=== PATIENT | male | born 1975 | race Caucasian/White ===

== ENCOUNTER 2017-02-08 16:59 | Emergency (ER) | payer BC ==
[2017-02-08] MEDS ORDERED: Sodium Chloride 0.9% 10 ML Syringe FLUSH PRN (17:33)
[2017-02-08] MEDS ORDERED: Famotidine 20 MG/2 ML SDV IVPUSH ONE (17:33)
[2017-02-08] MEDS ORDERED: Sodium Chloride 0.9% 2.5 ML Syringe FLUSH PRN (17:33)
--- NOTE | 2017-02-08 17:33 | EDM.PDOC ---
ED HPI GENERAL MEDICAL PROBLEM - General Chief Complaint: Chest Pain Stated Complaint: PT HAS DIFFICULTY BREATHING Time Seen by Provider: 02/08/17 17:30 Source of Information: Reports: Patient History Limitations: Reports: No Limitations - History of Present Illness INITIAL COMMENTS - FREE TEXT/NARRATIVE: HISTORY AND PHYSICAL: []41-year-old male presents with chest pain and difficulty breathing for the last 2 weeks. History of Present Illness: [Patient reports having esophageal stricture which she has had been stretched about every 3 years and this feels similar to the last episode. Last stretching procedure was completed in 2012. 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 Past medical history: As per history of present illness and as reviewed below otherwise noncontributory. Surgical history: As per history of present illness and as reviewed below otherwise noncontributory. Social history: No reported history of drug or alcohol abuse. Family history: As per history of present illness and as reviewed below otherwise noncontributory. Physical exam: Alert and oriented gentleman. Answering questions appropriately. HEENT: Atraumatic, normocehpalic, pupils reactive, negative for conjunctival pallor or scleral icterus, mucous membranes moist, throat clear, neck supple, nontender, trachea midline. Lungs: Clear to auscultation, breath sounds equal bilaterally, chest non tender. Heart: S1S2, regular, negative for clicks, rubs, or JVD. EKG normal sinus rhythm. Abdomen: Soft, nondistended, nontender. Negative for masses or hepatossplenmegaly. Negative for costovertebral tenderness. Pelvis: Stable nontender. Genitourinary: Deferred. Rectal: Deferred Extremities: Atraumatic, negative for cords or calf pain. Neurovascular unremarkable. Neuro: Awake, alert, oriented. Cranial nerves II through XII unremarkable. Cerebellum unremarkable. Motor and sensory unremarkable throughout. Exam nonfocal. Diagnostics: [Chest x-ray EKG chest pain protocol] Therapeutics: [GI cocktail/ duoneb] Impression: []esophageal stricture Plan: [home gi cocktail 1 tblspoon qid prn Referral to Dr. Oakley for esophageal stricture ] Definitive disposition and diagnosis as appropriate pending reevaluation and review of above. Onset: Gradual Duration: Week(s): (2), Getting Worse Location: Reports: Chest Quality: Reports: Same as Previous Episode Severity: Moderate Improves with: Reports: None Context: Reports: Activity Associated Symptoms: Reports: Weakness Middle Chest Pain Score (Numeric/FACES): 2 - Related Data Allergies Allergy/AdvReac Type Severity Reaction Status Date / Time tetracycline Allergy Airway Verified 02/08/17 17:43 Tightness Home Meds: Home Meds GI Cocktail 30 ml PO QID PRN #240 ml 02/08/17 [Rx] Lisinopril/Hydrochlorothiazide [Lisinopril-Hctz 20-25 mg Tab] 1 tab PO DAILY 02/19 [History] Meloxicam [Mobic] 15 mg PO DAILY 02/08/17 [History] ED ROS GENERAL - Review of Systems Review Of Systems: ROS reveals no pertinent complaints other than HPI. ED EXAM, GENERAL - Physical Exam Exam: See Below (See dictation) Course - Vital Signs Last Recorded V/S: Last Vital Signs Temp 36.5 C 02/08/17 17:40 Pulse 79 02/08/17 17:40 Resp 11 L 02/08/17 18:30 BP 114/60 02/08/17 18:30 Pulse Ox 97 02/08/17 18:30 - Orders/Labs/Meds Orders: Active Orders 24 hr Category Date Time Status Cardiac Monitoring [RC] . DIRECTED Care 02/08/17 17:33 Active EKG Documentation Completion [RC] STAT Care 02/08/17 17:33 Active Oxygen Therapy [RC] ASDIRECTED Care 02/08/17 17:33 Active RT Aerosol Therapy [RC] ASDIRECTED Care 02/08/17 18:31 Active Chest 1V Frontal [CR] Stat Exams 02/08/17 17:33 Taken Sodium Chloride 0.9% [Saline Flush] Med 02/08/17 17:33 Active 10 ml FLUSH ASDIRECTED PRN Sodium Chloride 0.9% [Saline Flush] Med 02/08/17 17:33 Active 2.5 ml FLUSH ASDIRECTED PRN Saline Lock Insert [OM.PC] Stat Oth 02/08/17 17:33 Ordered Medication Orders Sodium Chloride (Saline Flush) 10 ml FLUSH ASDIRECTED PRN PRN Reason: Keep Vein Open Sodium Chloride (Saline Flush) 2.5 ml FLUSH ASDIRECTED PRN PRN Reason: Keep Vein Open Labs: Laboratory Tests 02/08/17 02/08/17 02/08/17 Range/Units 17:45 17:45 17:45 WBC 7.69 (4.0-11.0) K/uL RBC 5.20 (4.50-5.90) M/uL Hgb 14.7 (13.0-17.0) g/dL Hct 42.7 (38.0-50.0) % MCV 82.1 (80.0-98.0) fL MCH 28.3 (27.0-32.0) pg MCHC 34.4 (31.0-37.0) g/dL RDW Std Deviation 39.5 (28.0-62.0) fl RDW Coeff of Mariano 13 (11.0-15.0) % Plt Count 226 (150-400) K/uL MPV 9.60 (7.40-12.00) fL Neut % (Auto) 59.7 (48.0-80.0) % Lymph % (Auto) 27.8 (16.0-40.0) % [place] % (Auto) 7.9 (0.0-15.0) % Eos % (Auto) 4.3 (0.0-7.0) % Baso % (Auto) 0.3 (0.0-1.5) % Neut # (Auto) 4.6 (1.4-5.7) K/uL Lymph # (Auto) 2.1 (0.6-2.4) K/uL [place] # (Auto) 0.6 (0.0-0.8) K/uL Eos # (Auto) 0.3 (0.0-0.7) K/uL Baso # (Auto) 0.0 (0.0-0.1) K/uL Nucleated RBC % 0.0 /100WBC Nucleated RBCs # 0 K/uL Sodium 139 (136-146) mmol/L Potassium 4.0 (3.5-5.1) mmol/L Chloride 106 (98-110) mmol/L Carbon Dioxide 25 (21-31) mmol/L BUN 18 (6.0-23.0) mg/dL Creatinine 1.0 (0.6-1.5) mg/dL Est Cr Clr Drug Dosing 102.49 mL/min Estimated GFR (MDRD) > 60.0 ml/min Glucose 146 H (60-110) mg/dL Calcium 8.8 (8.8-10.8) mg/dL Total Bilirubin 0.7 (0.1-1.5) mg/dL AST 15 (5-40) IU/L ALT 22 (8-54) IU/L Alkaline Phosphatase 65 (40-150) Troponin I < 0.10 (0.0-0.29) NG/ML Total Protein 6.7 (6.0-8.0) g/dL Albumin 4.0 (3.5-5.0) g/dL Globulin 2.7 (2.0-3.5) g/dL Albumin/Globulin Ratio 1.5 (1.3-2.8) Meds: Medications Generic Name Dose Route Start Last Admin Trade Name Freq PRN Reason Stop Dose Admin Sodium Chloride 10 ml 02/08/17 17:33 Saline Flush FLUSH ASDIRECTED PRN Keep Vein Open Sodium Chloride 2.5 ml 02/08/17 17:33 Saline Flush FLUSH ASDIRECTED PRN Keep Vein Open Discontinued Medications Generic Name Dose Route Start Last Admin Trade Name Freq PRN Reason Stop Dose Admin Albuterol/Ipratropium 3 ml 02/08/17 18:31 02/08/17 18:40 Duoneb 3.0-0.5 Mg/3 Ml NEB 02/08/17 18:32 3 ml ONETIME ONE Administration Al Hydroxide/Mg Hydroxide 15 0 ml 02/08/17 18:31 02/08/17 18:54 ml/ Metoclopramide HCl 5 mg/ PO 02/08/17 18:32 1 each Lidocaine HCl 5 ml ONETIME ONE Administration Famotidine 20 mg 02/08/17 17:33 02/08/17 18:08 Pepcid IVPUSH 02/08/17 17:34 20 mg ONETIME ONE Administration Departure - Departure Time of Disposition: 19:02 Disposition: Home, Self-Care 01 Condition: good Clinical Impression: Esophagitis, Esophageal stricture - Discharge Information Prescriptions: GI Cocktail 30 ml PO QID PRN #240 ml PRN Reason: Other Referrals: PCP,None [Primary Care Provider] - Tosha De Leon MD [Physician] - Forms: ED Department Discharge Additional Instructions: The following information is given to patients seen in the emergency department who are being discharged to home. This information is to outline your options for follow-up care. We provide all patients seen in our emergency department with a follow-up referral. The need for follow-up, as well as the timing and circumstances, are variable depending upon the specifics of your emergency department visit. If you don't have a primary care physician on staff, we will provide you with a referral. We always advise you to contact your personal physician following an emergency department visit to inform them of the circumstance of the visit and for follow-up with them and/or the need for any referrals to a consulting specialist. The emergency department will also refer you to a specialist when appropriate. This referral assures that you have the opportunity for followup care with a specialist. All of these measure are taken in an effort to provide you with optimal care, which includes your followup. Under all circumstances we always encourage you to contact your private physician who remains a resource for coordinating your care. When calling for followup care, please make the office aware that this follow-up is from your recent emergency room visit. If for any reason you are refused follow-up, please contact the [facility] emergency department at and asked to speak to the emergency department charge nurse. Referral has been made to Dr. Moises CANAS [facility] - General Surgery Professional Building [address] [place] [address], [address] [place] [address] Please call in the morning for an appointment to be reevaluated - My Orders Last 24 Hours: My Active Orders 02/08/17 17:33 Cardiac Monitoring [RC] . DIRECTED EKG Documentation Completion [RC] STAT Oxygen Therapy [RC] ASDIRECTED Chest 1V Frontal [CR] Stat Sodium Chloride 0.9% [Saline Flush] 10 ml FLUSH ASDIRECTED PRN Sodium Chloride 0.9% [Saline Flush] 2.5 ml FLUSH ASDIRECTED PRN Saline Lock Insert [OM.PC] Stat 02/08/17 18:31 RT Aerosol Therapy [RC] ASDIRECTED - Assessment/Plan Last 24 Hours: My Active Orders 02/08/17 17:33 Cardiac Monitoring [RC] . DIRECTED EKG Documentation Completion [RC] STAT Oxygen Therapy [RC] ASDIRECTED Chest 1V Frontal [CR] Stat Sodium Chloride 0.9% [Saline Flush] 10 ml FLUSH ASDIRECTED PRN Sodium Chloride 0.9% [Saline Flush] 2.5 ml FLUSH ASDIRECTED PRN Saline Lock Insert [OM.PC] Stat 02/08/17 18:31 RT Aerosol Therapy [RC] ASDIRECTED
[2017-02-08 18:15] LABS: CHLORIDE,CL 106 mmol/L (98-110); SODIUM,NA 139 mmol/L (136-146)
[2017-02-08] MEDS ORDERED: Alum Hydrox/Mag Hydrox/Simeth 15 ML, Metoclopramide 5 MG, Lidocaine 2% 5 ML PO ONE ×3 (18:31)
[2017-02-08] MEDS ORDERED: Albuterol/Ipratropium 3.0-0.5 MG/3 ML Neb Soln NEB ONE (18:31)
[2017-02-08 19:27] VITALS: BP 126/74
--- NOTE | 2017-02-09 10:38 | CR ---
EXAM DATE: 02/08/17 PATIENT'S AGE: 41 Patient: SYDNEE FRANCO Facility: [place], [place] Site . Site : [id number] Study: XRay Chest [id number]/[id number] 6:13:17 PM Ordering Physician: Doctor Wong Final Report: INDICATION: chest pain TECHNIQUE: Chest radiograph 1 view COMPARISON: None FINDINGS: The study is moderately limited by body habitus. Cardiovascular and mediastinum: The cardiac silhouette is normal in appearance and size. Mediastinum is within normal limits. Lungs and pleural space: Both lungs are unremarkable in appearance. No sign of pleural effusion. No pneumothorax is seen. Bones and soft tissues: No significant findings. IMPRESSION: 1. No acute cardiopulmonary disease seen. Dictated by: Armando Ann MD @ 02/08/2017 18:24:49 (Electronic Signature) Report Signed by Proxy. [facility]
== END 2017-02-08 19:27 | disposition home or self-care (01) ==
LOC: MW.ED 16:59
DX: K22.2 Esophageal obstruction (principal); K20.9 Esophagitis, unspecified; Z79.899 Other long term (current) drug therapy; Z88.1 Allergy status to other antibiotic agents
CPT/HCPCS: 71010; 80053; 84484; 85025; 93005; 94664; 96374; 99285; A9270; 99284